=== PATIENT | female | born 1955 | race Caucasian/White ===

== ENCOUNTER 2017-10-19 20:47 | Inpatient (IN) | payer OTHER ==
[~2017-10-19] VITALS: Ht 165.1 cm; Wt 53.7 kg
[~2017-10-19 20:47] MED LIST: ONDA4TAB46 PO; RANI150T85 PO; SILV1CRE73 TOP; XLD/500 PO
[2017-10-19 23:39] VITALS: BP 105/63; PULSE 90; TEMP 37.2; O2SAT 90
[2017-10-19 23:43] VITALS: BP 105/63; PULSE 90; TEMP 37.2; O2SAT 90; BMI 20.2
[2017-10-20] MEDS ORDERED: RANITIDINE HCL 150 MG TAB PO PRN (00:15)
[2017-10-20] MEDS ORDERED: ONDANSETRON 4 MG TAB PO PRN (00:15)
[2017-10-20] MEDS ORDERED: ONDANSETRON INJ 2 MG/ML 2 ML VIAL IV PRN (00:15)
[2017-10-20] MEDS ORDERED: ALUMINUM/MAGNESIUM/SIMETH (MAALOX MAX) 30 ML UDC PO PRN (00:15)
[2017-10-20] MEDS ORDERED: ACETAMINOPHEN 325 MG TAB PO PRN (00:15)
[2017-10-20] MEDS ORDERED: PROC10TA PO (00:18)
[2017-10-20] MEDS ORDERED: OXYC-57 PO (00:18)
[2017-10-20] MEDS ORDERED: ALBUT/IPRATROP 3MG/0.5MG NEB 3 ML VIAL INH PRN (00:30)
[2017-10-20] MEDS ORDERED: POLYETHYLENE (MIRALAX) 17 GM PACK PO PRN (00:30)
[2017-10-20] MEDS ORDERED: NSS + 20MEQ KCL 1000ML 1,000 ML IV SCH (00:45)
[2017-10-20] MEDS: MoRPHine SULFATE 4 MG/ML 1 ML CARP\\VIAL IV PRN ×3 (01:02→17:58)
[2017-10-20 04:07] VITALS: BP 94/52; PULSE 72; TEMP 37.1; O2SAT 92
[2017-10-20 06:11] LABS: BASO % 0.2 %; BASO ABS # 0.01 K/uL (0-0.2); EOS % 4.4 %; EOS ABS # 0.24 K/uL (0-0.5); HEMATOCRIT 33.3 % (37-47); HEMOGLOBIN 11.2 g/dL (12.0-16.0); IG# 0.11 K/uL (0.00-0.02); LYMPH % 19.2 %; LYMPH ABS # 1.04 K/uL (1.2-3.4); MEAN CELL VOLUME 99.4 fL (80-100); MEAN CORPUSCULAR HEMOGLOBIN 33.4 pg (25-34); MEAN CORPUSCULAR HGB CONC 33.6 g/dl (32-36); MEAN PLATELET VOLUME 9.2 fL (7.4-10.4); MONO % 11.6 %; MONO ABS # 0.63 K/uL (0.11-0.59); NEUT % 62.6 %; NEUT ABS # 3.38 K/uL (1.4-6.5); PLATELET COUNT 219 K/uL (130-400); RED CELL DISTRIBUTION WIDTH SD 64.2 fL (36.4-46.3); WHITE BLOOD COUNT 5.41 K/uL (4.8-10.8)
[2017-10-20 06:41] LABS: CALCIUM 8.1 mg/dl (8.5-10.1); CREATININE 0.64 mg/dl (0.60-1.20); PHOSPHORUS 2.6 mg/dl (2.5-4.9); POTASSIUM 3.6 mmol/L (3.5-5.1)
[2017-10-20 06:59] VITALS: BMI 19.9
--- NOTE | 2017-10-20 07:09 | Medical Consult ---
Consultation Date of Consultation: Oct 20, 2017. Attending Physician: Asha Hui M.D. Reason for Consultation: bowel obstruction History of Present Illness pt adm with abd pain, distention over 1-2 weeks h/o rectal cancer dx'd 05/2017, undergoing neoadj chemo now radiation. pt is bloated w/ abd pain, No N/V Pt of GeTrepUper system, has been seen by Dr Tong surgeon in [place]. has had no surgery yet. She says she is passing gas and loose bms Social History Smoking Status: Former Smoker Allergies Coded Allergies: Iodinated Diagnostic Agents (Verified Allergy, Intermediate, HIVES, ) Current Inpatient Medications Current Inpatient Medications Medications (Trade) Dose Ordered Sig/Boo Route Start Time Stop Time Status Last Admin Dose Admin Acetaminophen (Tylenol Tab) 650 mg Q4H PRN PO 10/20/17 00:15 11/19/17 00:14 Al Hydrox/Mg Hydrox/Simethicone (Maalox Max Susp) 15 ml Q4H PRN PO 10/20/17 00:15 11/19/17 00:14 Polyethylene (Miralax Powder Packet) 17 gm DAILY PRN PO 10/20/17 00:30 11/19/17 00:29 Ondansetron HCl (Zofran Inj) 4 mg Q6H PRN IV 10/20/17 00:15 11/19/17 00:14 Ondansetron HCl (Zofran Tab) 4 mg Q4 PRN PO 10/20/17 00:15 11/19/17 00:14 Ranitidine HCl (zANTac TAB) 150 mg BID PRN PO 10/20/17 00:15 11/19/17 00:14 Silver Sulfadiazine (Silvadene 1% Crm 50GM Jar) 1 appln DAILY EXT 10/20/17 08:00 11/19/17 07:59 Potassium Chloride/Sodium Chloride 1,000 ml @ 100 mls/hr Q10H IV 10/20/17 00:45 11/19/17 00:14 10/20/17 01:01 100 MLS/HR Morphine Sulfate (MoRPHine SULFATE INJ) 3 mg Q3HWA PRN IV 10/20/17 00:15 11/03/17 00:14 10/20/17 01:02 3 MG Albuterol/ Ipratropium (Duoneb) 3 ml Q4R PRN INH 10/20/17 00:30 11/19/17 00:29 Review of Systems Constitutional: No fever Respiratory: No cough, No shortness of breath Cardiovascular: No chest pain Abdomen: + pain, + diarrhea, No vomiting Musculoskeletal: No muscle pain Integumentary: No rash Physical Exam Date Time Temp Pulse Resp B/P (MAP) Pulse Ox O2 Delivery O2 Flow Rate FiO2 10/20/17 04:07 37.1 72 18 94/52 (66) 92 Room Air 10/19/17 23:43 37.2 90 18 105/63 90 Room Air 10/19/17 23:39 37.2 90 18 105/63 (77) 90 Room Air General Appearance: no apparent distress Eyes: normal inspection Neck: supple Respiratory/Chest: no respiratory distress Cardiovascular: regular rate, rhythm Abdomen/GI: + distended (minimal tenderness, some bowel sounds) Extremities/Musculoskelatal: no pedal edema Neurologic/Psych: alert Skin: no rash Laboratory Results Last 24 Hours Test 10/20/17 05:37 White Blood Count 5.41 K/uL Red Blood Count 3.35 M/uL Hemoglobin 11.2 g/dL Hematocrit 33.3 % Mean Corpuscular Volume 99.4 fL Mean Corpuscular Hemoglobin 33.4 pg Mean Corpuscular Hemoglobin Concent 33.6 g/dl Platelet Count 219 K/uL Mean Platelet Volume 9.2 fL Neutrophils (%) (Auto) 62.6 % Lymphocytes (%) (Auto) 19.2 % Monocytes (%) (Auto) 11.6 % Eosinophils (%) (Auto) 4.4 % Basophils (%) (Auto) 0.2 % Neutrophils # (Auto) 3.38 K/uL Lymphocytes # (Auto) 1.04 K/uL Monocytes # (Auto) 0.63 K/uL Eosinophils # (Auto) 0.24 K/uL Basophils # (Auto) 0.01 K/uL RDW Standard Deviation 64.2 fL RDW Coefficient of Variation 18.0 % Immature Granulocyte % (Auto) 2.0 % Immature Granulocyte # (Auto) 0.11 K/uL Sodium Level 139 mmol/L Potassium Level 3.6 mmol/L Chloride Level 103 mmol/L Carbon Dioxide Level 28 mmol/L Anion Gap 9.0 mmol/L Blood Urea Nitrogen 15 mg/dl Creatinine 0.64 mg/dl Est Creatinine Clear Calc Drug Dose 78.4 ml/min Estimated GFR () 110.1 Estimated GFR (Non- 95.0 BUN/Creatinine Ratio 23.3 Random Glucose 83 mg/dl Calcium Level 8.1 mg/dl Phosphorus Level 2.6 mg/dl Magnesium Level 2.1 mg/dl Assessment & Plan 10/20/17- Pt transferred from [place]- had CT there- radiology trying to find it.\ seems to be developing obstructive sxs from tumor- may need diversion- depending on progress. Will ask radiology to obtain CT from [place]. Consider GI eval- stenting may be difficult with tumor near anal area. May need transfer to [place] if pt req surgery and she wants Dr Tong to perform. May need Tpn/ Picc 10/20/17- Addendum- after review of CT- pt has dilated small bowel with decompressed distal ileum- sbo- possibly adhesion (?had tubal). Colon is decompressed - unlikely tumor is causing this- could be ileus. Will place NG. She has not had N/V nonoperative treatment for now
[2017-10-20 07:10] VITALS: BP 99/58; PULSE 74; TEMP 36.9; O2SAT 91
--- NOTE | 2017-10-20 08:05 | HISTORY & PHYSICAL EXAMINATION ---
DATE OF ADMISSION: 10/19/2017 CHIEF COMPLAINT: abdominal pain. HISTORY OF PRESENT ILLNESS: 61F with recent diagnosis of rectal cancer on chemoradiation,hx of GERD, tobacco use presents with severe abdominal pain ongoing for last couple of weeks. Thought it was UTI and was getting antibiotics but her symptoms are not improving. No nausea or vomiting. But last couple of days not eating. Took laxatives and had a normal bowel movement today.Because of ongoing abdominal pain went to [place] ER today. Ct sacn was done which swoed dilated jejunum and possible Distal SBO or ileus and was transferred ere for further care. Denies any headaches or dizziness, No blurred vsion, no earaches, No runny nose, no sore throat, no difficulty swallowing. having low grade fevers on and off, No chest pain or sob.No cough. No blood in stools. Normal bladder movements. PMH as above Past surgical history: Colonoscopy with biopsy, ligation of oviducts, tonsillectomy. MEDICATIONS: The patient is on Cipro 500 mg p.o. b.i.d. for 10 days, Percocet 5/325 mg 1 tablet every 4-6 hours p.r.n., silver sulfadiazine apply to affected area as needed, Zofran 8 mg p.o. b.i.d. p.r.n., Xeloda 1300mg mg p.o. b.i.d.with radiation, compazine 10mg p.r.n., Pepcid 20 mg p.o. bid. FAMILY HISTORY: Significant for father . SOCIAL HISTORY: and lives with her . Smokes 1 pack a day for 49 years. No alcohol. No drugs REVIEW OF SYMPTOMS: As per HPI. Rest of the review of symptoms negative. PHYSICAL EXAMINATION: GENERAL: The patient is of moderate build, not in distress. VITAL SIGNS: Temperature 37.2, pulse 90, respiratory rate 18, blood pressure 105/63 oxygen 90% on room air. HEENT: No pallor, no icterus. NECK: No JVD. No neck masses. No carotid bruits. CARDIOVASCULAR: S1, S2 heard. Regular rate and rhythm. No murmur. No gallop. RESPIRATORY SYSTEM: Normal AP diameter. No accessory muscle use. No wheezing. No crackles. ABDOMEN: Soft. Bowel sounds sluggish, slightly distended. Diffuse tenderness. No guarding or rigidity. CENTRAL NERVOUS SYSTEM: Cranial nerves II through XII grossly intact. Nonfocal. EXTREMITIES: No edema, no erythema. LABORATORIES: outside labs potassium 3.1 . rest of labs ok. Ct scan shows 4.5cm dilated jejunum. possible distal SBO vs ileus ASSESSMENT AND PLAN: 1.SBO vs ileus on ct scan done at [facility] Will keep npo except meds IV fluids, iv pain meds and antiemetics prn follow kub in am surgery consult in am 2.rectal cancer on chemo radiation. takes Xeloda on days of radiation because of ongoing above symptoms will consult heme/onco. 3. Dvt px scds for now Disposition. monitor in medical floor code status Full only if chance of recover. MTDD
[2017-10-20] MEDS: SILVER SULFADIAZINE 1% CR 50 GM JAR EXT SCH (08:57)
[2017-10-20] MEDS: D5W AND 1/2NSS + 20MEQ KCL 1,000 ML IV SCH ×2 (08:58→17:01)
[2017-10-20 09:00] VITALS: BMI 19.9
--- NOTE | 2017-10-20 11:11 | DIAGNOSTIC IMAGING REPORT ---
KUB CLINICAL HISTORY: Small bowel obstruction. History of colon carcinoma COMPARISON STUDY: PET/CT scan performed July 2017 FINDINGS: Nasogastric tube is visualized with its tip in the stomach. There are dilated small bowel loops measuring up to 5.4 cm in diameter. There is a paucity of colonic gas. The findings are consistent with a small bowel obstruction. IMPRESSION: 1. Small bowel obstructive pattern 2. Nasogastric tube within the stomach Electronically signed by: hIsan Bustamante M.D. 10/20/2017 11:10 AM Dictated Date/Time: 10/20/2017 11:09 AM
[2017-10-20 11:26] VITALS: BP 98/60; PULSE 63; TEMP 36.9; O2SAT 90
[2017-10-20 14:59] VITALS: BP 104/63; PULSE 73; TEMP 39.9; O2SAT 91
--- NOTE | 2017-10-20 15:06 | Gastrointestinal Consultation ---
Gastrointestinal Consultation Date of Consultation: Oct 20, 2017 Attending Physician: Saulo Benoit Consulting Physician: Carly Resendez Reason for Consultation: Ileus vs mechanical obstruction History of Present Illness Patient is a 61 year old female seen for ileus vs mechanical obstruction. Diagnosed w invasive rectal adenocarcinoma via colonoscopy on 06/28/[address] Ramirez. Cancer extending about 5cm into rectum. She had been evaluated by Heme/Onc (Dr. Ely) and Colorectal Sx (Dr. Tong), no surgical plans yet, she started adjuvant chemoradiation (had 4 sessions), also currently taking Xeloda. She presented to [facility] yesterday w c/o abd pain, n/v, bloating x [address] abd/pelvis w/o contrast done showed jejunum dilation up to 4.2cm, no obvious mechanical obstruction or transition point noted. She was transferred to [facility] for further management. Surgery (Dr. Benoit) following. Labs showed no leukocytosis, H/H 11/33, Plt 219. BMP grossly normal except Ca 8.1. KUB again represent small bowel obstruction, NGT tip in stomach. She is passing flatus and also liquid stools up till this AM. She denies any rectal bleeding or dark tarry stools. NGT w intermittent suction w >100ml bilious gastric fluid output. She is still having bloating and abd discomfort. She is currently NPO except meds. She recently was started on Cipro for suspected UTI. Also been taking Percocet for rectal pain. Past Medical/Surgical History Past Medical History: See HPI above; emphysema, tobacco abuse, anxiety Past Surgical History: Tubal ligation, tonsillectomy Family History Not related to current admission Social History Smoking Status: Former Smoker Alcohol Use: none Drug Use: none Allergies Coded Allergies: Iodinated Diagnostic Agents (Verified Allergy, Intermediate, HIVES, ) Current Medications Home Meds and Scripts Medications Dose Route/Sig Max Daily Dose Days Date Category Percocet 5MG/325MG (Oxycodone/Acetaminophen) Tab 1 Tablet PO Q4H PRN 10/20/17 Rx Compazine (Prochlorperazine Maleate) 10 Mg Tab 10 Mg PO Q6H PRN 10/20/17 Rx Silvadene (Silver Sulfadiazine) 1 % Cre 1 Appln TOP DAILY 7 10/04/17 Reported Zofran (Ondansetron HCl) 4 Mg Tab 4 Mg PO Q4 PRN 09/27/17 Reported Xeloda (Capecitabine) 500 Mg Tab 1,300 Mg PO Q12H 09/20/17 Reported Zantac (Ranitidine HCl) 150 Mg Tab 1 Tab PO BID PRN 30 08/24/17 Reported Review of Systems Constitutional: No fever, No chills Respiratory: No cough, No shortness of breath Cardiac: No chest pain Abdomen: + see HPI, + pain, + nausea, + vomiting, + diarrhea Skin: No rash, No itch Physical Exam Date Time Temp Pulse Resp B/P (MAP) Pulse Ox O2 Delivery O2 Flow Rate FiO2 10/20/17 11:26 36.9 63 16 98/60 (73) 90 10/20/17 10:42 Room Air 10/20/17 07:10 36.9 74 18 99/58 (72) 91 10/20/17 04:07 37.1 72 18 94/52 (66) 92 Room Air 10/19/17 23:43 37.2 90 18 105/63 90 Room Air 10/19/17 23:39 37.2 90 18 105/63 (77) 90 Room Air General Appearance: + mild distress (c/o abd discomfort and bloating ) Eyes: normal inspection, PERRL, EOMI Neck: supple, no JVD, trachea midline Respiratory/Chest: normal breath sounds, no respiratory distress, no accessory muscle use Cardiovascular: regular rate, rhythm, no gallop, no murmur Abdomen: + abnormal bowel sounds (tympanic; high pitched), + distended, + tenderness Extremities: normal inspection, no pedal edema, no calf tenderness Neurologic/Psych: alert, normal mood/affect, oriented x 3 Skin: normal color, no jaundice, no rash Laboratory Results Last 24 Hours Test 10/20/17 05:37 White Blood Count 5.41 K/uL Red Blood Count 3.35 M/uL Hemoglobin 11.2 g/dL Hematocrit 33.3 % Mean Corpuscular Volume 99.4 fL Mean Corpuscular Hemoglobin 33.4 pg Mean Corpuscular Hemoglobin Concent 33.6 g/dl Platelet Count 219 K/uL Mean Platelet Volume 9.2 fL Neutrophils (%) (Auto) 62.6 % Lymphocytes (%) (Auto) 19.2 % Monocytes (%) (Auto) 11.6 % Eosinophils (%) (Auto) 4.4 % Basophils (%) (Auto) 0.2 % Neutrophils # (Auto) 3.38 K/uL Lymphocytes # (Auto) 1.04 K/uL Monocytes # (Auto) 0.63 K/uL Eosinophils # (Auto) 0.24 K/uL Basophils # (Auto) 0.01 K/uL RDW Standard Deviation 64.2 fL RDW Coefficient of Variation 18.0 % Immature Granulocyte % (Auto) 2.0 % Immature Granulocyte # (Auto) 0.11 K/uL Sodium Level 139 mmol/L Potassium Level 3.6 mmol/L Chloride Level 103 mmol/L Carbon Dioxide Level 28 mmol/L Anion Gap 9.0 mmol/L Blood Urea Nitrogen 15 mg/dl Creatinine 0.64 mg/dl Est Creatinine Clear Calc Drug Dose 78.4 ml/min Estimated GFR () 110.1 Estimated GFR (Non- 95.0 BUN/Creatinine Ratio 23.3 Random Glucose 83 mg/dl Calcium Level 8.1 mg/dl Phosphorus Level 2.6 mg/dl Magnesium Level 2.1 mg/dl Impression Patient is a 61 year old female w invasive rectal adenocarcinoma, currently presented with small bowel obstruction vs ileus; no obvious mechanical obstruction/mass or transition point seen in CT scan (done at [place]). She is passing flatus and liquid stools thus likely ileus rather than complete SBO. NGT in place. Possible etiologies of her ileus: hx of tubal ligation and no other prior abd surgery thus making adhesions less likely, Xeloda w low risk of causing intestinal obstruction, she had been taking Percocet for rectal pain. Plan - Keep NPO - NGT to low intermittent suction - KUB daily till ileus resolves - Avoid narcotics if possible - Check Cdiff to r/o infectious process. - Unfortunately Relistor may not be very useful in small bowel obstruction but we will try 2 doses of this; and there's little we can offer from GI standpoint otherwise to help resolve the obstruction. Surgery already following. Would consider possible transfer to [facility] where there's colorectal surgery support (she had been seen by Dr. Jasiel Tong) should SBO not resolve w conservative management and if surgery is indicated I saw and evaluated the patient with Ms. Palmer. She was referred to [facility] after presenting to the emergency room at [facility] last evening with worsening symptoms of nausea and abdominal bloating. Imaging seems to indicate dilation of the small bowel and decompression of the colon. Her history is notable for rectal cancer which was identified by my partner . She is presently receiving neoadjuvant chemoradiation therapy in preparation for surgery with at [facility]. The patient does note that she is a large amount of pain medication at home approximately every 4-6 hours. Physical examination Mild abdominal distention, mild tenderness noted, no rebound or peritoneal signs Impression: Patient with signs and symptoms most consistent with a narcotic ileus. Given the diarrhea and her ongoing chemotherapy it may be reasonable to obtain a C. difficile PCR to ensure she does not have a C. difficile infection. We would also suggest a trial of Relistor to see if this helps the patient's symptoms improve over the next few days. I would agree with continuing the NG tube to low intermittent suction and daily abdominal films. The patient may also benefit from continued IV hydration as you are doing. I would also suggest avoidance of narcotics if possible as these are likely contributing to her present symptoms.
[2017-10-20] MEDS: METHYLNALTREXONE BROMIDE INJ 12 MG/0.6 ML SYR SQ SCH (17:00)
--- NOTE | 2017-10-20 17:06 | Medical Consult ---
Consultation Date of Consultation: Oct 20, 2017. Attending Physician: Asha Hui M.D. Reason for Consultation: Abdominal pain/bloating in setting of recently completed neoadjuvant chemoRT for rectal cancer History of Present Illness Ms. Garcia is a 61 yo F known to the consulting Oncology service for rectal cancer diagnosed in May 2017, clinical T3c N1 M0. She was on neoadjuvant chemoRT with Xeloda starting in Aug 2017. Patient called into Med Onc office last week stating she would not finish out chemoRT, about 5 days worth due to side effects. She developed radiation proctitis toward the end of her treatment and also the perineal skin had significant breakdown. She was using Silvadene and lanolin cream to the affected area. Rad Onc Rx oxycodone/APAP 5/325 mg PRN for pain. For the 2 weeks leading up to admission, patient was having issues with nausea, bloating, bowel frequency, perineal pain with urination due to skin breakdown. With stopping the chemoRT last week, the perineal are was able to heal. She decided yesterday to seek medical attention for her GI symptoms at [facility]. She had a CT scan that showed some small bowel dilatation, concerning for SBO. She was transferred to [facility] for further management. She has been evaluated by general surgery- CT was reviewed, with clinical opinion more likely with ileus vs SBO. She has NG tube and is NPO. She has been recommended to be transferred to [facility] if she does not improve with conservative treatment as that is where her CRC surgeon is. She was also evaluated by GI. Relistor has been given x 2. Additional history obtained from the patient at bedside. She states her abdominal bloating remains unchanged. She did not have BM for a few days prior to admission, so she reports taking a laxative and then developing mostly liquid bowel, had movement last night and this morning. She denies nausea or abd pain. She has not had GI bleeding. She reports anal/perineal area less raw. She denies fever, respiratory complaints, edema. Social History Smoking Status: Former Smoker Drug Use: none Allergies Coded Allergies: Iodinated Diagnostic Agents (Verified Allergy, Intermediate, HIVES, ) Current Inpatient Medications Current Inpatient Medications Medications (Trade) Dose Ordered Sig/Boo Route Start Time Stop Time Status Last Admin Dose Admin Acetaminophen (Tylenol Tab) 650 mg Q4H PRN PO 10/20/17 00:15 11/19/17 00:14 Al Hydrox/Mg Hydrox/Simethicone (Maalox Max Susp) 15 ml Q4H PRN PO 10/20/17 00:15 11/19/17 00:14 Polyethylene (Miralax Powder Packet) 17 gm DAILY PRN PO 10/20/17 00:30 11/19/17 00:29 Ondansetron HCl (Zofran Inj) 4 mg Q6H PRN IV 10/20/17 00:15 11/19/17 00:14 Ondansetron HCl (Zofran Tab) 4 mg Q4 PRN PO 10/20/17 00:15 11/19/17 00:14 Ranitidine HCl (zANTac TAB) 150 mg BID PRN PO 10/20/17 00:15 11/19/17 00:14 Silver Sulfadiazine (Silvadene 1% Crm 50GM Jar) 1 appln DAILY EXT 10/20/17 08:00 11/19/17 07:59 10/20/17 08:57 1 APPLN Morphine Sulfate (MoRPHine SULFATE INJ) 3 mg Q3HWA PRN IV 10/20/17 00:15 11/03/17 00:14 10/20/17 08:58 3 MG Albuterol/ Ipratropium (Duoneb) 3 ml Q4R PRN INH 10/20/17 00:30 11/19/17 00:29 Potassium Chloride/Dextrose/ Sod Cl 1,000 ml @ 125 mls/hr Q8H IV 10/20/17 08:30 11/19/17 08:29 10/20/17 08:58 125 MLS/HR Methylnaltrexone [place] (Relistor Inj) 12 mg Q2D@0900 SQ 10/20/17 15:45 10/22/17 09:01 Review of Systems Constitutional: No fever, No weakness Respiratory: No cough, No shortness of breath Cardiovascular: No chest pain, No edema Abdomen: + diarrhea, + problem reported (see HPI), No pain, No nausea, No GI bleeding Integumentary: No rash Physical Exam Date Time Temp Pulse Resp B/P (MAP) Pulse Ox O2 Delivery O2 Flow Rate FiO2 10/20/17 14:59 39.9 73 20 104/63 (77) 91 Room Air 10/20/17 11:26 36.9 63 16 98/60 (73) 90 10/20/17 10:42 Room Air 10/20/17 07:10 36.9 74 18 99/58 (72) 91 10/20/17 04:07 37.1 72 18 94/52 (66) 92 Room Air 10/19/17 23:43 37.2 90 18 105/63 90 Room Air 10/19/17 23:39 37.2 90 18 105/63 (77) 90 Room Air General Appearance: no apparent distress, + thin ENT: hearing grossly normal, + pertinent finding (NG tube in place) Respiratory/Chest: lungs clear, normal breath sounds Cardiovascular: regular rate, rhythm, no edema Abdomen/GI: no organomegaly, + abnormal bowel sounds, + distended Extremities/Musculoskelatal: no calf tenderness Neurologic/Psych: alert, oriented x 3 Skin: no rash Laboratory Results Last 24 Hours Test 10/20/17 05:37 White Blood Count 5.41 K/uL Red Blood Count 3.35 M/uL Hemoglobin 11.2 g/dL Hematocrit 33.3 % Mean Corpuscular Volume 99.4 fL Mean Corpuscular Hemoglobin 33.4 pg Mean Corpuscular Hemoglobin Concent 33.6 g/dl Platelet Count 219 K/uL Mean Platelet Volume 9.2 fL Neutrophils (%) (Auto) 62.6 % Lymphocytes (%) (Auto) 19.2 % Monocytes (%) (Auto) 11.6 % Eosinophils (%) (Auto) 4.4 % Basophils (%) (Auto) 0.2 % Neutrophils # (Auto) 3.38 K/uL Lymphocytes # (Auto) 1.04 K/uL Monocytes # (Auto) 0.63 K/uL Eosinophils # (Auto) 0.24 K/uL Basophils # (Auto) 0.01 K/uL RDW Standard Deviation 64.2 fL RDW Coefficient of Variation 18.0 % Immature Granulocyte % (Auto) 2.0 % Immature Granulocyte # (Auto) 0.11 K/uL Sodium Level 139 mmol/L Potassium Level 3.6 mmol/L Chloride Level 103 mmol/L Carbon Dioxide Level 28 mmol/L Anion Gap 9.0 mmol/L Blood Urea Nitrogen 15 mg/dl Creatinine 0.64 mg/dl Est Creatinine Clear Calc Drug Dose 78.4 ml/min Estimated GFR () 110.1 Estimated GFR (Non- 95.0 BUN/Creatinine Ratio 23.3 Random Glucose 83 mg/dl Calcium Level 8.1 mg/dl Phosphorus Level 2.6 mg/dl Magnesium Level 2.1 mg/dl Assessment & Plan 1. rectal cancer diagnosed in May 2017, clinical T3c N1 M0 2. Probable ileus vs SBO, not from direct tumor effect * Patient has been evaluated by gen surg and GI * Patient is on conservative management with NG tube, NPO * Has been advised by GS and GI that if fails to improve with conservative treatment, to be transferred to [facility] where her CRC surgeon could perform definitive surgery * Patient should use morphine PRN sparingly * Patient has completed neoadj treatment at this point, her treatment now for rectal cancer is surgery based (may need adjuvant systemic treatment) * Patient can follow up with Med Onc on hospital discharge Thanks for the consult. Dr. Gallardo is rounding medical oncologist I performed history and physical examination of the patient. ~I have discussed the patient's case, impression and plan with Sulema Dunlap PA-C. Her note reflects my findings and plan. In summary, she is a 61-year-old female, a case of rectal adenocarcinoma diagnosed in May 2017, preoperative staging T3c N1 M0, she follows up with my partner Dr. Ely, she completed combined chemotherapy exonerated radiation treatment recently few weeks back, she will not complete the treatment quite well, 4 weeks of planned 5 weeks of treatment, she had a radiation induced proctitis, now admitted for possible small bowel obstruction or ileus, managed conservatively, had some bowel movement in the morning, reviewed her blood workup done today, overall stable blood workup findings noted, mild anemia with hemoglobin level around 11.2, no neutropenia, stable and normal kidney function test noted. Will continue with the current medical management but if she needs a surgical intervention, will consider for transfer to [facility]. No further medical oncology recommendation at this time. We should see her back in the clinic after definitive surgical intervention in her case to consider for any additional systemic chemotherapy. Kasi Gallardo MD Hem/Onc.
[2017-10-20 19:00] VITALS: BP_SYST 104; BP_SYST 95; BP_DIAS 53; BP_DIAS 63; PULSE 73; TEMP 36.8; TEMP 39.9; O2SAT 85; O2SAT 91
--- NOTE | 2017-10-20 23:09 | Progress Note ---
Internal Med Progress Note Date of Service: Oct 20, 2017. Provider Documentation: SUBJECTIVE: Denies of any nausea or abdominal pain NG tube draining yellow-green drainage No fever or chills OBJECTIVE: Vital Signs-as noted below Exam: General-no apparent distress Eyes-sclera nonicteric, pupils reactive light ENT-dry oral mucosa Neck-no JVD no carotid bruit, no thyromegaly, trachea midline Lungs-clear to auscultate, no wheeze or rales Heart-regular S1-S2, Abdomen-soft, bowel sounds diminished Extremities-no lower extremity edema, no calf tenderness Neuro-alert awake oriented 3 no focal neurological deficits Lab data as noted below. ASSESSMENT & PLAN: ABDOMINAL PAIN/DISTAL SMALL BOWEL OBSTRUCTION -Sent from [facility], CT abdomen pelvis without contrast: 10/19/2017, at [facility]: -Diffuse dilatation of the jejunum is seen measuring up to 4.2 cm in transluminal in the diameter with fluid-filled bowel loops. -Differential diagnostic diagnosis considerations include intermittent digit distal small bowel obstruction versus ileus. -No definitive evidence of transition point or evidence of mechanical obstruction on Admission 10/20/17 KUB shows Impression 1. Small bowel obstruction pattern 2. Nasogastric tube within the stomach -Patient is started with NG suction -Appreciate input from surgery -N.p.o., IV fluid -Repeat KUB in a.m. HISTORY OF RECTAL CANCER ON CHEMO AND RADIATION TREATMENT rectal cancer diagnosed in May 2017, clinical stage T3c N1 M0.Stage IIA -III 06/07/2017: Patient was seen by Beth Swenson physician recreation assistant with complaint of rectal bleed Referral was made for colonoscopy 06/28/2017: Colonoscopy revealed firm nodular - infiltrative polypoid ulcerated rectal mass starting from anal verge and extending up to 5 cm in length Biopsy/pathology shows: Invasive adenocarcinoma, moderately differentiated Patient was seen at [facility] colorectal surgery Dr.Kevin Freeman Tong - will need to complete neoadjuvant chemoradiation therapy -Post chemoradiation patient will need laparoscopic or possible open abdominal perineal resection Hematology oncology consulted, appreciate input Patient been on Xeloda on days of radiation Patient could not complete chemo treatment last week due to side effect Also has developed radiation proctitis with significant perineal skin breakdown In any case if patient fails conservative approach, needs exploratory laparotomy for small bowel obstruction Patient should be transferred to [facility] where she is being followed by colorectal surgery Dr. tong Status: Full code DVT PROPHYLAXIS SCD and teds Pharmacological anticoagulation avoided as patient may need surgical procedure for bowel obstruction DISPOSITION Expected to be discharged home when medically stable Vital Signs: Date Time Temp Pulse Resp B/P (MAP) Pulse Ox O2 Delivery O2 Flow Rate FiO2 10/21/17 11:55 36.7 69 20 94/56 (69) 85 Room Air 10/21/17 11:11 Room Air 10/21/17 07:10 36.8 73 18 95/57 (70) 87 Room Air 10/21/17 04:04 36.7 74 18 101/60 (74) 85 Room Air 10/21/17 01:18 Room Air 10/20/17 23:55 37.1 70 18 92/52 (65) 88 Room Air 10/20/17 19:00 36.8 73 20 95/53 (67) 85 Room Air 10/20/17 16:00 Room Air 10/20/17 14:59 39.9 73 20 104/63 (77) 91 Room Air Lab Results: Results Past 24 Hours Test 10/21/17 00:03 10/21/17 06:01 Range/Units Sodium Level 139 136-145 mmol/L Potassium Level 3.9 3.5-5.1 mmol/L Chloride Level 105 98-107 mmol/L Carbon Dioxide Level 29 21-32 mmol/L Anion Gap 5.0 3-11 mmol/L Blood Urea Nitrogen 9 7-18 mg/dl Creatinine 0.71 0.60-1.20 mg/dl Est Creatinine Clear Calc Drug Dose 70.4 ml/min Estimated GFR () 105.1 Estimated GFR (Non- 90.7 BUN/Creatinine Ratio 12.2 10-20 Random Glucose 143 70-99 mg/dl Calcium Level 7.8 8.5-10.1 mg/dl Magnesium Level 2.0 1.8-2.4 mg/dl White Blood Count 7.57 4.8-10.8 K/uL Red Blood Count 3.26 4.2-5.4 M/uL Hemoglobin 10.9 12.0-16.0 g/dL Hematocrit 32.4 37-47 % Mean Corpuscular Volume 99.4 80-100 fL Mean Corpuscular Hemoglobin 33.4 25-34 pg Mean Corpuscular Hemoglobin Concent 33.6 32-36 g/dl Platelet Count 191 130-400 K/uL Mean Platelet Volume 8.8 7.4-10.4 fL Neutrophils (%) (Auto) 74.9 % Lymphocytes (%) (Auto) 12.2 % Monocytes (%) (Auto) 9.2 % Eosinophils (%) (Auto) 2.5 % Basophils (%) (Auto) 0.3 % Neutrophils # (Auto) 5.67 1.4-6.5 K/uL Lymphocytes # (Auto) 0.92 1.2-3.4 K/uL Monocytes # (Auto) 0.70 0.11-0.59 K/uL Eosinophils # (Auto) 0.19 0-0.5 K/uL Basophils # (Auto) 0.02 0-0.2 K/uL RDW Standard Deviation 63.3 36.4-46.3 fL RDW Coefficient of Variation 18.0 11.5-14.5 % Immature Granulocyte % (Auto) 0.9 % Immature Granulocyte # (Auto) 0.07 0.00-0.02 K/uL
[2017-10-20 23:55] VITALS: BP 92/52; PULSE 70; TEMP 37.1; O2SAT 88
[2017-10-21] MEDS: D5W AND 1/2NSS + 20MEQ KCL 1,000 ML IV SCH ×3 (01:03→17:21)
[2017-10-21] MEDS: MoRPHine SULFATE 4 MG/ML 1 ML CARP\\VIAL IV PRN ×2 (03:51→08:22)
[2017-10-21 04:04] VITALS: BP 101/60; PULSE 74; TEMP 36.7; O2SAT 85
[2017-10-21 06:17] LABS: BASO % 0.3 %; BASO ABS # 0.02 K/uL (0-0.2); EOS % 2.5 %; EOS ABS # 0.19 K/uL (0-0.5); HEMATOCRIT 32.4 % (37-47); HEMOGLOBIN 10.9 g/dL (12.0-16.0); IG# 0.07 K/uL (0.00-0.02); LYMPH % 12.2 %; LYMPH ABS # 0.92 K/uL (1.2-3.4); MEAN CELL VOLUME 99.4 fL (80-100); MEAN CORPUSCULAR HEMOGLOBIN 33.4 pg (25-34); MEAN CORPUSCULAR HGB CONC 33.6 g/dl (32-36); MEAN PLATELET VOLUME 8.8 fL (7.4-10.4); MONO % 9.2 %; NEUT % 74.9 %; NEUT ABS # 5.67 K/uL (1.4-6.5); PLATELET COUNT 191 K/uL (130-400); RED CELL DISTRIBUTION WIDTH SD 63.3 fL (36.4-46.3); WHITE BLOOD COUNT 7.57 K/uL (4.8-10.8)
[2017-10-21 06:21] VITALS: BMI 20.2
[2017-10-21 06:56] LABS: CALCIUM 7.8 mg/dl (8.5-10.1); CREATININE 0.71 mg/dl (0.60-1.20); POTASSIUM 3.9 mmol/L (3.5-5.1)
[2017-10-21 07:10] VITALS: BP 95/57; PULSE 73; TEMP 36.8; O2SAT 87
--- NOTE | 2017-10-21 07:11 | Surgery Progress Note ---
Surgery Progress Note Date of Service Oct 21, 2017. Subjective pt awake, alert, min abd pain says some flatus, loose bm yesterday NG- clear bilious output- 500+ last shift Objective Vital Signs: Date Time Temp Pulse Resp B/P (MAP) Pulse Ox O2 Delivery O2 Flow Rate FiO2 10/21/17 04:04 36.7 74 18 101/60 (74) 85 Room Air 10/21/17 01:18 Room Air 10/20/17 23:55 37.1 70 18 92/52 (65) 88 Room Air 10/20/17 19:00 36.8 73 20 95/53 (67) 85 Room Air 10/20/17 16:00 Room Air 10/20/17 14:59 39.9 73 20 104/63 (77) 91 Room Air 10/20/17 11:26 36.9 63 16 98/60 (73) 90 10/20/17 10:42 Room Air 10/20/17 07:10 36.9 74 18 99/58 (72) 91 General Appearance: no apparent distress Respiratory/Chest: no respiratory distress Abdomen: + pertinent finding (still some distention, decreased bowel sounds) Laboratory Results: Results Past 24 Hours Test 10/21/17 00:03 10/21/17 06:01 Range/Units Sodium Level 139 136-145 mmol/L Potassium Level 3.9 3.5-5.1 mmol/L Chloride Level 105 98-107 mmol/L Carbon Dioxide Level 29 21-32 mmol/L Anion Gap 5.0 3-11 mmol/L Blood Urea Nitrogen 9 7-18 mg/dl Creatinine 0.71 0.60-1.20 mg/dl Est Creatinine Clear Calc Drug Dose 70.4 ml/min Estimated GFR () 105.1 Estimated GFR (Non- 90.7 BUN/Creatinine Ratio 12.2 10-20 Random Glucose 143 70-99 mg/dl Calcium Level 7.8 8.5-10.1 mg/dl Magnesium Level 2.0 1.8-2.4 mg/dl White Blood Count 7.57 4.8-10.8 K/uL Red Blood Count 3.26 4.2-5.4 M/uL Hemoglobin 10.9 12.0-16.0 g/dL Hematocrit 32.4 37-47 % Mean Corpuscular Volume 99.4 80-100 fL Mean Corpuscular Hemoglobin 33.4 25-34 pg Mean Corpuscular Hemoglobin Concent 33.6 32-36 g/dl Platelet Count 191 130-400 K/uL Mean Platelet Volume 8.8 7.4-10.4 fL Neutrophils (%) (Auto) 74.9 % Lymphocytes (%) (Auto) 12.2 % Monocytes (%) (Auto) 9.2 % Eosinophils (%) (Auto) 2.5 % Basophils (%) (Auto) 0.3 % Neutrophils # (Auto) 5.67 1.4-6.5 K/uL Lymphocytes # (Auto) 0.92 1.2-3.4 K/uL Monocytes # (Auto) 0.70 0.11-0.59 K/uL Eosinophils # (Auto) 0.19 0-0.5 K/uL Basophils # (Auto) 0.02 0-0.2 K/uL RDW Standard Deviation 63.3 36.4-46.3 fL RDW Coefficient of Variation 18.0 11.5-14.5 % Immature Granulocyte % (Auto) 0.9 % Immature Granulocyte # (Auto) 0.07 0.00-0.02 K/uL Assessment & Plan 10/21/17- abd distention and CT findings - sbo- ileus vs mechanical recent chemo/ radiation- doubt findings related to tumor- colon decompressed. May consider Re CT w/ contrast via NG- GI team seeing pt. Overall she is stable addendum- CT w/ contrast- report pending- all contrast into small bowel none in stomach- no N/V- NG clamped since this am. contrast is progressing through dilated sb. will d/c NG, check xray in am to assess transit of contrast. possibly try diet tomorrow.
--- NOTE | 2017-10-21 08:13 | DIAGNOSTIC IMAGING REPORT ---
KUB CLINICAL HISTORY: Reevaluate ileus. COMPARISON STUDY: KUB October 20, 2017. FINDINGS: Tip of nasogastric tube projects over the pylorus. Moderate small bowel gaseous distention has moderately improved. There is scattered colonic and rectal gas. IMPRESSION: 1. Moderate small bowel gaseous distention, moderately improved since prior exam. The findings may reflect a small bowel obstruction or ileus. 2. Tip of nasogastric tube projects over the pylorus. Electronically signed by: Marcelino Pickering M.D. 10/21/2017 8:12 AM Dictated Date/Time: 10/21/2017 8:09 AM
[2017-10-21] MEDS: SILVER SULFADIAZINE 1% CR 50 GM JAR EXT SCH (08:14)
--- NOTE | 2017-10-21 11:54 | Gastroenterology Progress Note ---
Progress Note Date of Service: Oct 21, 2017 Subjective Pt evaluation today including: conversation w/ patient, physical exam, chart review, lab review, review of inpatient medication list Pt feels still having some abd bloating and discomfort. NGT outpt 150mL. She is passing still some stools and flatus. KUB showed moderate improvement of small bowel distension. Her exam revealed soft abd w good bowel sounds on all 4 quadrants. Review of Systems Constitutional: No fever, No chills Respiratory: No cough, No shortness of breath Cardiac: No chest pain Abdomen: + pain, No nausea, No vomiting Medications Current Inpatient Medications Medications (Trade) Dose Ordered Sig/Boo Route Start Time Stop Time Status Last Admin Dose Admin Acetaminophen (Tylenol Tab) 650 mg Q4H PRN PO 10/20/17 00:15 11/19/17 00:14 Al Hydrox/Mg Hydrox/Simethicone (Maalox Max Susp) 15 ml Q4H PRN PO 10/20/17 00:15 11/19/17 00:14 Polyethylene (Miralax Powder Packet) 17 gm DAILY PRN PO 10/20/17 00:30 11/19/17 00:29 Ondansetron HCl (Zofran Inj) 4 mg Q6H PRN IV 10/20/17 00:15 11/19/17 00:14 10/20/17 17:58 4 MG Ondansetron HCl (Zofran Tab) 4 mg Q4 PRN PO 10/20/17 00:15 11/19/17 00:14 Ranitidine HCl (zANTac TAB) 150 mg BID PRN PO 10/20/17 00:15 11/19/17 00:14 Silver Sulfadiazine (Silvadene 1% Crm 50GM Jar) 1 appln DAILY EXT 10/20/17 08:00 11/19/17 07:59 10/21/17 08:14 1 APPLN Morphine Sulfate (MoRPHine SULFATE INJ) 3 mg Q3HWA PRN IV 10/20/17 00:15 11/03/17 00:14 10/21/17 08:22 3 MG Albuterol/ Ipratropium (Duoneb) 3 ml Q4R PRN INH 10/20/17 00:30 11/19/17 00:29 Potassium Chloride/Dextrose/ Sod Cl 1,000 ml @ 125 mls/hr Q8H IV 10/20/17 08:30 11/19/17 08:29 10/21/17 08:15 125 MLS/HR Methylnaltrexone [employer] (Relistor Inj) 12 mg Q2D@0900 SQ 10/20/17 15:45 10/22/17 09:01 10/20/17 17:00 12 MG Objective Vital Signs Date Time Temp Pulse Resp B/P (MAP) Pulse Ox O2 Delivery O2 Flow Rate FiO2 10/21/17 11:11 Room Air 10/21/17 07:10 36.8 73 18 95/57 (70) 87 Room Air 10/21/17 04:04 36.7 74 18 101/60 (74) 85 Room Air 10/21/17 01:18 Room Air 10/20/17 23:55 37.1 70 18 92/52 (65) 88 Room Air 10/20/17 19:00 36.8 73 20 95/53 (67) 85 Room Air 10/20/17 16:00 Room Air 10/20/17 14:59 39.9 73 20 104/63 (77) 91 Room Air Physical Exam General Appearance: WD/WN, no apparent distress Eyes: normal inspection, PERRL, EOMI Neck: supple, no JVD, trachea midline Respiratory/Chest: normal breath sounds, no respiratory distress, no accessory muscle use Cardiovascular: regular rate, rhythm, no gallop, no murmur Abdomen: normal bowel sounds, non tender, soft Extremities: normal inspection, no pedal edema, no calf tenderness Neurologic/Psych: alert, normal mood/affect, oriented x 3 Skin: normal color, no jaundice, no rash Laboratory Results Last 24 Hours Test 10/21/17 00:03 10/21/17 06:01 Sodium Level 139 mmol/L Potassium Level 3.9 mmol/L Chloride Level 105 mmol/L Carbon Dioxide Level 29 mmol/L Anion Gap 5.0 mmol/L Blood Urea Nitrogen 9 mg/dl Creatinine 0.71 mg/dl Est Creatinine Clear Calc Drug Dose 70.4 ml/min Estimated GFR () 105.1 Estimated GFR (Non- 90.7 BUN/Creatinine Ratio 12.2 Random Glucose 143 mg/dl Calcium Level 7.8 mg/dl Magnesium Level 2.0 mg/dl White Blood Count 7.57 K/uL Red Blood Count 3.26 M/uL Hemoglobin 10.9 g/dL Hematocrit 32.4 % Mean Corpuscular Volume 99.4 fL Mean Corpuscular Hemoglobin 33.4 pg Mean Corpuscular Hemoglobin Concent 33.6 g/dl Platelet Count 191 K/uL Mean Platelet Volume 8.8 fL Neutrophils (%) (Auto) 74.9 % Lymphocytes (%) (Auto) 12.2 % Monocytes (%) (Auto) 9.2 % Eosinophils (%) (Auto) 2.5 % Basophils (%) (Auto) 0.3 % Neutrophils # (Auto) 5.67 K/uL Lymphocytes # (Auto) 0.92 K/uL Monocytes # (Auto) 0.70 K/uL Eosinophils # (Auto) 0.19 K/uL Basophils # (Auto) 0.02 K/uL RDW Standard Deviation 63.3 fL RDW Coefficient of Variation 18.0 % Immature Granulocyte % (Auto) 0.9 % Immature Granulocyte # (Auto) 0.07 K/uL Assessment and Plan Patient is a 61 year old female w invasive rectal adenocarcinoma, currently presented with small bowel obstruction vs ileus; no obvious mechanical obstruction/mass or transition point seen in CT scan (done at [place]). She is passing flatus and liquid stools thus likely ileus rather than complete SBO. NGT in place. Possible etiologies of her ileus: hx of tubal ligation and no other prior abd surgery thus making adhesions less likely, Xeloda w low risk of causing intestinal obstruction, she had been taking Percocet for rectal pain. Today exam showed soft abd, BS present x 4, KUB w moderate improvement of small bowel distension. Plan - Keep NPO - May try clamping NGT and DC by end of day if she tolerated clamping well. - KUB daily till ileus resolves - Avoid narcotics if possible - Check Cdiff to r/o infectious process. - Unfortunately Relistor may not be very useful in small bowel obstruction but we will try 2 doses of this; and there's little we can offer from GI standpoint otherwise to help resolve the obstruction. Surgery already following. Would consider possible transfer to [facility] where there's colorectal surgery support (she had been seen by Dr. Jasiel Tong) should SBO not resolve w conservative management and if surgery is indicated - We will watch peripherally, call again if new questions/concerns arise. I saw and evaluated the patient with Ms. Palmer. She appears to be slowly improving with use of Relistor from last evening. Based on the presentation we suspect that she has an narcotic induced ileus. Recommendations Given additional dose of Relistor tomorrow Try to avoid narcotics Bowel regimen as outpatient should include MiraLAX 17 g 1-2 times daily Please call with any questions or concerns GI to sign off for the present time
[2017-10-21 11:55] VITALS: BP 94/56; PULSE 69; TEMP 36.7; O2SAT 85
[2017-10-21 15:02] VITALS: BP 90/55; PULSE 67; TEMP 36.7; O2SAT 92
--- NOTE | 2017-10-21 15:24 | DIAGNOSTIC IMAGING REPORT ---
ABD/PELVIS ORAL CONT ONLY CLINICAL HISTORY: 61 years-old Female presenting with small bowel obstruction, history of rectal cancer. TECHNIQUE: Multidetector CT of the abdomen and pelvis was performed after the administration of oral contrast only. IV contrast: None. A dose lowering technique was used consistent with the principles of ALARA (as low as reasonably achievable). COMPARISON: PET/CT from 08/23/2017. CT DOSE (mGy.cm): The estimated cumulative dose is 299.41 mGy.cm. FINDINGS: Transfer Coordinator topogram: Nasogastric tube terminates in the gastric antrum. Gaseous distention of bowel. Hyperinflation of the lungs. Lung bases: Moderate emphysema. Subpleural solid polygonal 7 mm nodule in the lateral basal right lower lobe unchanged (series 3 image 3). Scarring or atelectasis noted in the right middle lobe and lingula. Normal heart size. No pericardial or pleural effusion. Liver: Normal morphology. Normal density. Well-defined subcentimeter hypodensity at the hepatic dome indeterminate but likely hepatic cyst or hamartoma. Periportal edema may be present. Biliary: No gross biliary ductal dilatation allowing for noncontrast technique. Gallbladder decompressed. Pancreas: Normal noncontrast appearance. Spleen: Normal noncontrast appearance. Adrenal glands: Normal noncontrast appearance. Kidneys and ureters: Normal noncontrast appearance. No nephrolithiasis. No hydronephrosis. Mild urothelial thickening may be present. Ureters suboptimally evaluated. Bladder: Circumferential bladder wall thickening. Pelvic organs: Normal noncontrast appearance. Bowel: Diverticulosis of the sigmoid colon. The appendix is not well evaluated. Dilated small bowel, which measures up to 4 cm in diameter. Oral contrast has transited to the mid small bowel. There is a smooth transition upstream to less dilated this to July. There is also a relatively smooth transition downstream to less dilated bowel in the mid anterior abdomen. No focal transition point is present though adhesions are not excluded as a cause for a partial obstruction. Mild small bowel wall thickening. No pneumatosis. Nasogastric tube terminates well within the gastric antrum (series 3 image 113). Peritoneal cavity: Small amount of predominantly pelvic ascites. No free intraperitoneal gas. Mild diffuse mesenteric infiltration. Lymph nodes: No gross lymphadenopathy allowing for noncontrast technique. Vasculature: Atherosclerosis of the normal caliber abdominal aorta. Abdominal wall: Normal. Musculoskeletal: Degenerative changes of the spine. IMPRESSION: 1. Findings may represent partial small bowel obstruction in the anterior mid abdomen versus ileus. No abrupt transition point is identifiable. Small bowel measures up to 4 cm in diameter with mild wall thickening. Developing ischemia not excluded. Evaluation is further limited by the lack of intravenous contrast. However, no pneumatosis. 2. The reported site of the rectal tumor is not well identified on this noncontrast examination. 3. Diverticulosis. 4. Small amount of ascites. 5. Moderate emphysema. 6. 7 mm subpleural solid right lower lobe nodule. Attention on follow-up. Electronically signed by: Ajit Palomares M.D. 10/21/2017 1:29 PM Dictated Date/Time: 10/21/2017 1:13 PM
[2017-10-21 19:25] VITALS: BP 99/61; PULSE 71; TEMP 37.2; O2SAT 90
--- NOTE | 2017-10-21 20:40 | Progress Note ---
Internal Med Progress Note Date of Service: Oct 21, 2017. Provider Documentation: SUBJECTIVE: Feels much better today, NG tube clamped, no nausea, no abdominal pain Order to discontinue ordered for CT abdomen pelvis with oral contrast via NG tube NG tube will be discontinued afterwards OBJECTIVE: Vital Signs-as noted below Exam: General-no apparent distress Eyes-sclera nonicteric, pupils reactive light ENT-dry oral mucosa/NG tube clamped with no drainage Neck-no JVD no carotid bruit, no thyromegaly, trachea midline Lungs-clear to auscultate, no wheeze or rales Heart-regular S1-S2, Abdomen-soft, bowel sounds diminished Extremities-no lower extremity edema, no calf tenderness Neuro-alert awake oriented 3 no focal neurological deficits Lab data as noted below. ASSESSMENT & PLAN: ABDOMINAL PAIN/DISTAL SMALL BOWEL OBSTRUCTION Clinically improved, patient able to have able to pass gas, had small bowel movement, no nausea NG tube clamped for minimum drainage discontinued later -Sent from [facility], CT abdomen pelvis without contrast: 10/19/2017, at [facility]: -Diffuse dilatation of the jejunum is seen measuring up to 4.2 cm in transluminal in the diameter with fluid-filled bowel loops. -Differential diagnostic diagnosis considerations include intermittent digit distal small bowel obstruction versus ileus. -No definitive evidence of transition point or evidence of mechanical obstruction on Admission 10/20/17 KUB shows Impression 1. Small bowel obstruction pattern 2. Nasogastric tube within the stomach -Patient was initially started on NG to suction discontinued today Appreciate input from surgery and GI Order for full liquid diet Continue to monitor HISTORY OF RECTAL CANCER ON CHEMO AND RADIATION TREATMENT rectal cancer diagnosed in May 2017, clinical stage T3c N1 M0.Stage IIA -III 06/07/2017: Patient was seen by Beth Swenson physician recovery assistant with complaint of rectal bleed Referral was made for colonoscopy 06/28/2017: Colonoscopy revealed firm nodular - infiltrative polypoid ulcerated rectal mass starting from anal verge and extending up to 5 cm in length Biopsy/pathology shows: Invasive adenocarcinoma, moderately differentiated Patient was seen at [facility] colorectal surgery Dr.Kevin Freeman Tong - will need to complete neoadjuvant chemoradiation therapy -Post chemoradiation patient will need laparoscopic or possible open abdominal perineal resection Hematology oncology consulted, appreciate input Patient been on Xeloda on days of radiation Patient could not complete chemo treatment last week due to side effect Also has developed radiation proctitis with significant perineal skin breakdown In any case if patient fails conservative approach, needs exploratory laparotomy for small bowel obstruction Patient should be transferred to [facility] where she is being followed by colorectal surgery Dr. tong Status: Full code DVT PROPHYLAXIS SCD and teds Pharmacological anticoagulation avoided as patient may need surgical procedure for bowel obstruction DISPOSITION Expected to be discharged home when medically stable Vital Signs: Date Time Temp Pulse Resp B/P (MAP) Pulse Ox O2 Delivery O2 Flow Rate FiO2 10/23/17 11:37 37.0 70 17 90/52 (65) 98 Room Air 10/23/17 08:30 96 Room Air 10/23/17 07:40 36.9 64 16 96/56 (69) 96 Room Air 10/23/17 07:23 36.8 66 16 96/57 (70) 96 Room Air 10/23/17 04:22 36.6 66 18 95/59 (71) 96 Room Air 10/23/17 00:03 37.0 61 18 89/53 (65) 96 Room Air 89/46 (60) 10/23/17 00:00 Room Air 10/22/17 19:56 36.3 86 18 90/60 (70) 93 Room Air 10/22/17 16:00 Room Air Lab Results: Results Past 24 Hours Test 10/23/17 08:39 Range/Units White Blood Count 6.35 4.8-10.8 K/uL Red Blood Count 3.75 4.2-5.4 M/uL Hemoglobin 12.3 12.0-16.0 g/dL Hematocrit 37.7 37-47 % Mean Corpuscular Volume 100.5 80-100 fL Mean Corpuscular Hemoglobin 32.8 25-34 pg Mean Corpuscular Hemoglobin Concent 32.6 32-36 g/dl Platelet Count 214 130-400 K/uL Mean Platelet Volume 9.3 7.4-10.4 fL Neutrophils (%) (Auto) 76.2 % Lymphocytes (%) (Auto) 15.1 % Monocytes (%) (Auto) 4.9 % Eosinophils (%) (Auto) 2.2 % Basophils (%) (Auto) 0.5 % Neutrophils # (Auto) 4.84 1.4-6.5 K/uL Lymphocytes # (Auto) 0.96 1.2-3.4 K/uL Monocytes # (Auto) 0.31 0.11-0.59 K/uL Eosinophils # (Auto) 0.14 0-0.5 K/uL Basophils # (Auto) 0.03 0-0.2 K/uL RDW Standard Deviation 64.6 36.4-46.3 fL RDW Coefficient of Variation 18.2 11.5-14.5 % Immature Granulocyte % (Auto) 1.1 % Immature Granulocyte # (Auto) 0.07 0.00-0.02 K/uL Sodium Level 140 136-145 mmol/L Potassium Level 4.1 3.5-5.1 mmol/L Chloride Level 107 98-107 mmol/L Carbon Dioxide Level 26 21-32 mmol/L Anion Gap 7.0 3-11 mmol/L Blood Urea Nitrogen 3 7-18 mg/dl Creatinine 0.80 0.60-1.20 mg/dl Est Creatinine Clear Calc Drug Dose 61.0 ml/min Estimated GFR () 90.9 Estimated GFR (Non- 78.5 BUN/Creatinine Ratio 4.3 10-20 Random Glucose 107 70-99 mg/dl Calcium Level 8.5 8.5-10.1 mg/dl Magnesium Level 1.9 1.8-2.4 mg/dl
[2017-10-21 23:32] VITALS: BP 100/60; PULSE 70; TEMP 37; O2SAT 93
[2017-10-22] MEDS: D5W AND 1/2NSS + 20MEQ KCL 1,000 ML IV SCH ×3 (01:22→17:05)
[2017-10-22 04:30] VITALS: BP 97/59; PULSE 69; TEMP 36.9; O2SAT 93
[2017-10-22 06:10] LABS: BASO % 0.7 %; BASO ABS # 0.04 K/uL (0-0.2); EOS % 3.4 %; HEMATOCRIT 34.2 % (37-47); HEMOGLOBIN 11.3 g/dL (12.0-16.0); IG# 0.07 K/uL (0.00-0.02); LYMPH % 15.4 %; LYMPH ABS # 0.91 K/uL (1.2-3.4); MEAN CELL VOLUME 99.1 fL (80-100); MEAN CORPUSCULAR HEMOGLOBIN 32.8 pg (25-34); MEAN PLATELET VOLUME 9.4 fL (7.4-10.4); MONO % 11.9 %; NEUT % 67.4 %; NEUT ABS # 3.98 K/uL (1.4-6.5); PLATELET COUNT 196 K/uL (130-400); RED CELL DISTRIBUTION WIDTH CV 17.9 % (11.5-14.5); RED CELL DISTRIBUTION WIDTH SD 63.7 fL (36.4-46.3)
[2017-10-22 06:21] LABS: CALCIUM 8.4 mg/dl (8.5-10.1); CREATININE 0.67 mg/dl (0.60-1.20)
[2017-10-22 06:38] VITALS: Ht 165.1 cm; Wt 53.7 kg
[2017-10-22 07:01] VITALS: BP 90/51; PULSE 73; TEMP 36.7; O2SAT 95
[2017-10-22] MEDS: SILVER SULFADIAZINE 1% CR 50 GM JAR EXT SCH (07:55)
--- NOTE | 2017-10-22 08:27 | DIAGNOSTIC IMAGING REPORT ---
ABDOMEN 2VIEW W/PA CHEST RTN CLINICAL HISTORY: 61 years-old Female presenting with assess transit of contrast. TECHNIQUE: PA view of the chest and supine and upright views of the abdomen were obtained. COMPARISON: 10/21/2017. FINDINGS: Cardiomediastinal silhouette normal. Minimal basilar opacities. No pleural effusion or pneumothorax. Lungs hyperinflated. Contrast is noted in the colon primarily in the right colon. Small bowel is significantly distended with an apparent diameter of nearly 5 cm though this is likely affected by magnification. The nasogastric tube has been removed. No gross pneumoperitoneum allowing for supine technique. Osseous structures normal. IMPRESSION: 1. Findings suggest emphysema. No focal infiltrate to suggest pneumonia. Minimal basilar opacities may represent scarring. 2. Persistent significant small bowel gaseous distention. Progression of oral contrast in the colon consistent with the absence of a complete obstruction. Findings could suggest severe ileus or partial obstruction. 3. Removal of the nasogastric tube. Electronically signed by: Ajit Palomares M.D. 10/22/2017 8:26 AM Dictated Date/Time: 10/22/2017 8:19 AM
[2017-10-22] MEDS: METHYLNALTREXONE BROMIDE INJ 12 MG/0.6 ML SYR SQ SCH (09:00)
[2017-10-22 11:18] VITALS: BP 100/63; PULSE 67; TEMP 36.9; O2SAT 96
--- NOTE | 2017-10-22 11:44 | Surgery Progress Note ---
Surgery Progress Note Date of Service Oct 22, 2017. Subjective no signif pain- pt smiling- good spirits hungry contrast in colon Objective Vital Signs: Date Time Temp Pulse Resp B/P (MAP) Pulse Ox O2 Delivery O2 Flow Rate FiO2 10/22/17 11:18 36.9 67 16 100/63 (75) 96 Room Air 10/22/17 09:03 Room Air 10/22/17 07:01 36.7 73 16 90/51 (64) 95 Room Air 10/22/17 04:30 36.9 69 17 97/59 (72) 93 Room Air 10/22/17 00:59 Room Air 10/21/17 23:32 37.0 70 18 100/60 (73) 93 Room Air 10/21/17 19:25 37.2 71 18 99/61 (74) 90 Room Air 10/21/17 19:00 Room Air 10/21/17 15:02 36.7 67 16 90/55 (67) 92 10/21/17 11:55 36.7 69 20 94/56 (69) 85 Room Air General Appearance: no apparent distress Respiratory/Chest: no respiratory distress Abdomen: + distended (mild) Laboratory Results: Results Past 24 Hours Test 10/22/17 05:35 Range/Units White Blood Count 5.90 4.8-10.8 K/uL Red Blood Count 3.45 4.2-5.4 M/uL Hemoglobin 11.3 12.0-16.0 g/dL Hematocrit 34.2 37-47 % Mean Corpuscular Volume 99.1 80-100 fL Mean Corpuscular Hemoglobin 32.8 25-34 pg Mean Corpuscular Hemoglobin Concent 33.0 32-36 g/dl Platelet Count 196 130-400 K/uL Mean Platelet Volume 9.4 7.4-10.4 fL Neutrophils (%) (Auto) 67.4 % Lymphocytes (%) (Auto) 15.4 % Monocytes (%) (Auto) 11.9 % Eosinophils (%) (Auto) 3.4 % Basophils (%) (Auto) 0.7 % Neutrophils # (Auto) 3.98 1.4-6.5 K/uL Lymphocytes # (Auto) 0.91 1.2-3.4 K/uL Monocytes # (Auto) 0.70 0.11-0.59 K/uL Eosinophils # (Auto) 0.20 0-0.5 K/uL Basophils # (Auto) 0.04 0-0.2 K/uL RDW Standard Deviation 63.7 36.4-46.3 fL RDW Coefficient of Variation 17.9 11.5-14.5 % Immature Granulocyte % (Auto) 1.2 % Immature Granulocyte # (Auto) 0.07 0.00-0.02 K/uL Sodium Level 143 136-145 mmol/L Potassium Level 4.0 3.5-5.1 mmol/L Chloride Level 107 98-107 mmol/L Carbon Dioxide Level 28 21-32 mmol/L Anion Gap 7.0 3-11 mmol/L Blood Urea Nitrogen 4 7-18 mg/dl Creatinine 0.67 0.60-1.20 mg/dl Est Creatinine Clear Calc Drug Dose 74.6 ml/min Estimated GFR () 108.4 Estimated GFR (Non- 93.5 BUN/Creatinine Ratio 5.7 10-20 Random Glucose 120 70-99 mg/dl Calcium Level 8.4 8.5-10.1 mg/dl Magnesium Level 2.1 1.8-2.4 mg/dl Chemistry Specimen Hemolysis Assessment & Plan 10/22/17- will try full liquids- discussed with Dr Gallardo- if pt fails, will likely transfer to [place]- or home if able to progress 10/21/17- abd distention and CT findings - sbo- ileus vs mechanical recent chemo/ radiation- doubt findings related to tumor- colon decompressed. May consider Re CT w/ contrast via NG- GI team seeing pt. Overall she is stable addendum- CT w/ contrast- report pending- all contrast into small bowel none in stomach- no N/V- NG clamped since this am. contrast is progressing through dilated sb. will d/c NG, check xray in am to assess transit of contrast. possibly try diet tomorrow. 10/21/17- abd distention and CT findings - sbo- ileus vs mechanical recent chemo/ radiation- doubt findings related to tumor- colon decompressed. May consider Re CT w/ contrast via NG- GI team seeing pt. Overall she is stable addendum- CT w/ contrast- report pending- all contrast into small bowel none in stomach- no N/V- NG clamped since this am. contrast is progressing through dilated sb. will d/c NG, check xray in am to assess transit of contrast. possibly try diet tomorrow.
[2017-10-22 19:56] VITALS: BP 90/60; PULSE 86; TEMP 36.3; O2SAT 93
--- NOTE | 2017-10-22 20:45 | Progress Note ---
Internal Med Progress Note Date of Service: Oct 22, 2017. Provider Documentation: SUBJECTIVE: Feels much better today: X-ray of KUB shows contrast passage all the way to colon Diet advanced to full liquid, tolerating well Plan to discharge home tomorrow if no further episode of nausea vomiting or abdominal discomfort OBJECTIVE: Vital Signs-as noted below Exam: General-no apparent distress Eyes-sclera nonicteric, pupils reactive light ENT-dry oral mucosa Neck-no JVD no carotid bruit, no thyromegaly, trachea midline Lungs-clear to auscultate, no wheeze or rales Heart-regular S1-S2, Abdomen-soft, bowel sounds diminished Extremities-no lower extremity edema, no calf tenderness Neuro-alert awake oriented 3 no focal neurological deficits Lab data as noted below. ASSESSMENT & PLAN: ABDOMINAL PAIN/DISTAL SMALL BOWEL OBSTRUCTION Clinically resolved with bowel rest, NG suction only CT abdomen pelvis with contrast shows: Possible partial small bowel obstruction versus ileus No abrupt transition point is identified Small bowel measures to 4 cm in diameter with mild wall thickening X-ray of KUB: Shows progression of oral contrast in the colon consistent with the absence of a complete obstruction Findings could suggest severe ileus or partial obstruction Patient has been tolerating diet well GI evaluated the patient, recommend bowel regimen Per surgery patient will be observed overnight, advance to solid food Can be discharged home tomorrow 10/23/2017 if no further GI symptoms -Sent from [facility], CT abdomen pelvis without contrast: 10/19/2017, at [facility]: -Diffuse dilatation of the jejunum is seen measuring up to 4.2 cm in transluminal in the diameter with fluid-filled bowel loops. -Differential diagnostic diagnosis considerations include intermittent digit distal small bowel obstruction versus ileus. -No definitive evidence of transition point or evidence of mechanical obstruction on Admission 10/20/17 KUB shows Impression 1. Small bowel obstruction pattern 2. Nasogastric tube within the stomach HISTORY OF RECTAL CANCER ON CHEMO AND RADIATION TREATMENT rectal cancer diagnosed in May 2017, clinical stage T3c N1 M0.Stage IIA -III 06/07/2017: Patient was seen by Beth Swenson physician patient observation assistant with complaint of rectal bleed Referral was made for colonoscopy 06/28/2017: Colonoscopy revealed firm nodular - infiltrative polypoid ulcerated rectal mass starting from anal verge and extending up to 5 cm in length Biopsy/pathology shows: Invasive adenocarcinoma, moderately differentiated Patient was seen at [facility] colorectal surgery Dr.Kevin Freeman Tong - will need to complete neoadjuvant chemoradiation therapy -Post chemoradiation patient will need laparoscopic or possible open abdominal perineal resection Hematology oncology consulted, appreciate input Patient been on Xeloda on days of radiation Patient could not complete chemo treatment last week due to side effect Also has developed radiation proctitis with significant perineal skin breakdown On conservative management with bowel rest, IV fluids only Plan to discharge home tomorrow if tolerating solid diet Status: Full code DVT PROPHYLAXIS SCD and teds Pharmacological anticoagulation avoided as patient may need surgical procedure for bowel obstruction DISPOSITION Plan for discharge home tomorrow Vital Signs: Date Time Temp Pulse Resp B/P (MAP) Pulse Ox O2 Delivery O2 Flow Rate FiO2 10/23/17 11:37 37.0 70 17 90/52 (65) 98 Room Air 10/23/17 08:30 96 Room Air 10/23/17 07:40 36.9 64 16 96/56 (69) 96 Room Air 10/23/17 07:23 36.8 66 16 96/57 (70) 96 Room Air 10/23/17 04:22 36.6 66 18 95/59 (71) 96 Room Air 10/23/17 00:03 37.0 61 18 89/53 (65) 96 Room Air 89/46 (60) 10/23/17 00:00 Room Air 10/22/17 19:56 36.3 86 18 90/60 (70) 93 Room Air 10/22/17 16:00 Room Air Lab Results: Results Past 24 Hours Test 10/23/17 08:39 Range/Units White Blood Count 6.35 4.8-10.8 K/uL Red Blood Count 3.75 4.2-5.4 M/uL Hemoglobin 12.3 12.0-16.0 g/dL Hematocrit 37.7 37-47 % Mean Corpuscular Volume 100.5 80-100 fL Mean Corpuscular Hemoglobin 32.8 25-34 pg Mean Corpuscular Hemoglobin Concent 32.6 32-36 g/dl Platelet Count 214 130-400 K/uL Mean Platelet Volume 9.3 7.4-10.4 fL Neutrophils (%) (Auto) 76.2 % Lymphocytes (%) (Auto) 15.1 % Monocytes (%) (Auto) 4.9 % Eosinophils (%) (Auto) 2.2 % Basophils (%) (Auto) 0.5 % Neutrophils # (Auto) 4.84 1.4-6.5 K/uL Lymphocytes # (Auto) 0.96 1.2-3.4 K/uL Monocytes # (Auto) 0.31 0.11-0.59 K/uL Eosinophils # (Auto) 0.14 0-0.5 K/uL Basophils # (Auto) 0.03 0-0.2 K/uL RDW Standard Deviation 64.6 36.4-46.3 fL RDW Coefficient of Variation 18.2 11.5-14.5 % Immature Granulocyte % (Auto) 1.1 % Immature Granulocyte # (Auto) 0.07 0.00-0.02 K/uL Sodium Level 140 136-145 mmol/L Potassium Level 4.1 3.5-5.1 mmol/L Chloride Level 107 98-107 mmol/L Carbon Dioxide Level 26 21-32 mmol/L Anion Gap 7.0 3-11 mmol/L Blood Urea Nitrogen 3 7-18 mg/dl Creatinine 0.80 0.60-1.20 mg/dl Est Creatinine Clear Calc Drug Dose 61.0 ml/min Estimated GFR () 90.9 Estimated GFR (Non- 78.5 BUN/Creatinine Ratio 4.3 10-20 Random Glucose 107 70-99 mg/dl Calcium Level 8.5 8.5-10.1 mg/dl Magnesium Level 1.9 1.8-2.4 mg/dl
[2017-10-23] VITALS (8 sets, daily range): BP systolic 89–96; BP diastolic 46–59; PULSE 61–70; TEMP 36.6–37; O2SAT 90–98
[2017-10-23] MEDS: D5W AND 1/2NSS + 20MEQ KCL 1,000 ML IV SCH ×2 (01:04→08:32)
[2017-10-23] MEDS: SILVER SULFADIAZINE 1% CR 50 GM JAR EXT SCH (08:32)
[2017-10-23 08:56] LABS: BASO % 0.5 %; BASO ABS # 0.03 K/uL (0-0.2); EOS % 2.2 %; EOS ABS # 0.14 K/uL (0-0.5); HEMATOCRIT 37.7 % (37-47); HEMOGLOBIN 12.3 g/dL (12.0-16.0); IG# 0.07 K/uL (0.00-0.02); LYMPH % 15.1 %; LYMPH ABS # 0.96 K/uL (1.2-3.4); MEAN CELL VOLUME 100.5 fL (80-100); MEAN CORPUSCULAR HEMOGLOBIN 32.8 pg (25-34); MEAN CORPUSCULAR HGB CONC 32.6 g/dl (32-36); MEAN PLATELET VOLUME 9.3 fL (7.4-10.4); MONO % 4.9 %; MONO ABS # 0.31 K/uL (0.11-0.59); NEUT % 76.2 %; NEUT ABS # 4.84 K/uL (1.4-6.5); PLATELET COUNT 214 K/uL (130-400); RED CELL DISTRIBUTION WIDTH CV 18.2 % (11.5-14.5); RED CELL DISTRIBUTION WIDTH SD 64.6 fL (36.4-46.3); WHITE BLOOD COUNT 6.35 K/uL (4.8-10.8)
[2017-10-23 09:31] LABS: CALCIUM 8.5 mg/dl (8.5-10.1); CREATININE 0.8 mg/dl (0.60-1.20); POTASSIUM 4.1 mmol/L (3.5-5.1)
--- NOTE | 2017-10-23 09:51 | Surgery Progress Note ---
Surgery Progress Note Date of Service Oct 23, 2017. Subjective Feels OK. Pain much improved. Still gets "gas pains" but is passing flatus and having bowel movements. tolerating full liquids and feels hungry for something more solid. Objective Vital Signs: Date Time Temp Pulse Resp B/P (MAP) Pulse Ox O2 Delivery O2 Flow Rate FiO2 10/23/17 07:40 36.9 64 16 96/56 (69) 96 Room Air 10/23/17 07:23 36.8 66 16 96/57 (70) 96 Room Air 10/23/17 04:22 36.6 66 18 95/59 (71) 96 Room Air 10/23/17 00:03 37.0 61 18 89/53 (65) 96 Room Air 89/46 (60) 10/23/17 00:00 Room Air 10/22/17 19:56 36.3 86 18 90/60 (70) 93 Room Air 10/22/17 16:00 Room Air 10/22/17 11:18 36.9 67 16 100/63 (75) 96 Room Air General Appearance: WD/WN, no apparent distress Head: normocephalic, atraumatic Respiratory/Chest: no respiratory distress, no accessory muscle use Cardiovascular: regular rate, rhythm Abdomen: normal bowel sounds, non tender, soft, + distended (mild) Extremities: no pedal edema Laboratory Results: Results Past 24 Hours Test 10/23/17 08:39 Range/Units White Blood Count 6.35 4.8-10.8 K/uL Red Blood Count 3.75 4.2-5.4 M/uL Hemoglobin 12.3 12.0-16.0 g/dL Hematocrit 37.7 37-47 % Mean Corpuscular Volume 100.5 80-100 fL Mean Corpuscular Hemoglobin 32.8 25-34 pg Mean Corpuscular Hemoglobin Concent 32.6 32-36 g/dl Platelet Count 214 130-400 K/uL Mean Platelet Volume 9.3 7.4-10.4 fL Neutrophils (%) (Auto) 76.2 % Lymphocytes (%) (Auto) 15.1 % Monocytes (%) (Auto) 4.9 % Eosinophils (%) (Auto) 2.2 % Basophils (%) (Auto) 0.5 % Neutrophils # (Auto) 4.84 1.4-6.5 K/uL Lymphocytes # (Auto) 0.96 1.2-3.4 K/uL Monocytes # (Auto) 0.31 0.11-0.59 K/uL Eosinophils # (Auto) 0.14 0-0.5 K/uL Basophils # (Auto) 0.03 0-0.2 K/uL RDW Standard Deviation 64.6 36.4-46.3 fL RDW Coefficient of Variation 18.2 11.5-14.5 % Immature Granulocyte % (Auto) 1.1 % Immature Granulocyte # (Auto) 0.07 0.00-0.02 K/uL Sodium Level 140 136-145 mmol/L Potassium Level 4.1 3.5-5.1 mmol/L Chloride Level 107 98-107 mmol/L Carbon Dioxide Level 26 21-32 mmol/L Anion Gap 7.0 3-11 mmol/L Blood Urea Nitrogen 3 7-18 mg/dl Creatinine 0.80 0.60-1.20 mg/dl Est Creatinine Clear Calc Drug Dose 61.0 ml/min Estimated GFR () 90.9 Estimated GFR (Non- 78.5 BUN/Creatinine Ratio 4.3 10-20 Random Glucose 107 70-99 mg/dl Calcium Level 8.5 8.5-10.1 mg/dl Magnesium Level 1.9 1.8-2.4 mg/dl Assessment & Plan 61 yr old woman undergoing chemoradiation for rectal cancer and admitted with narcotic ileus vs bowel obstruction. Appears to be resolving. OK to advance to soft diet.
--- NOTE | 2017-10-23 10:22 | DIAGNOSTIC IMAGING REPORT ---
KUB CLINICAL HISTORY: Rectal carcinoma. Bowel obstruction COMPARISON STUDY: October 22, 2017 FINDINGS: There are multiple dilated small bowel loops measuring up to 4.7 cm in diameter. There is gas present within nondilated colon. IMPRESSION: Persistent dilated small bowel loops, consistent with a focal small bowel ileus or partial small bowel obstruction Electronically signed by: Ihsan Bustamante M.D. 10/23/2017 10:20 AM Dictated Date/Time: 10/23/2017 10:19 AM
--- NOTE | 2017-10-23 14:02 | Discharge Instructions ---
Discharge Instructions Date of Service Oct 23, 2017. Admission Reason for Admission: Small Bowel Obstruction, Rectal Cancer Discharge Discharge Diagnosis / Problem: PARTIAL SMALL BOWEL OBSTRUCITON -RESOLVED Discharge Goals Goal(s): Decrease discomfort, Improve function, Increase independence, Improve disease control, Therapeutic intervention Activity Recommendations Activity Limitations: resume your previous activity . Instructions / Follow-Up Instructions / Follow-Up HOSPITAL FOLLOW UP : 10/28/2017 @ 11:05 AM José Miguel Velarde MD Internal Medicine [facility] HEMATOLOGY /ONCOLOGY FOLLOW UP : 10/27/2017 9:45 AM Jan Ely MD Hematology/ Oncology [facility] CONTINUE TO TAKE STOOL SOFTENER : COLACE 1 TAB TWICE DAILY ( OVER THE COUNTER ) /MIRALAX HOLD FOR LOOSE STOOL Current Hospital Diet Patient's current hospital diet: Low Fiber Diet Discharge Diet Recommended Diet: Full Liquid Diet Pending Studies Studies pending at discharge: no Medical Emergencies . Who to Call and When: Medical Emergencies: If at any time you feel your situation is an emergency, please call 911 immediately. . Non-Emergent Contact Non-Emergency issues call your: Primary Care Provider . . "Provider Documentation" section prepared by Asha Hui. .
--- NOTE | 2017-10-23 15:08 | Discharge Summary ---
Discharge Summary Date of Service Oct 23, 2017. Discharge Summary Admission Date: Oct 20, 2017 at 00:17 Discharge Date: Oct 23, 2017 Hospital Course ABDOMINAL PAIN/DISTAL SMALL BOWEL OBSTRUCTION Clinically resolved with bowel rest, NG suction only CT abdomen pelvis with contrast shows: Possible partial small bowel obstruction versus ileus No abrupt transition point is identified Small bowel measures to 4 cm in diameter with mild wall thickening X-ray of KUB: Shows progression of oral contrast in the colon consistent with the absence of a complete obstruction Findings could suggest severe ileus or partial obstruction Patient has been tolerating diet well GI evaluated the patient, recommend bowel regimen Per surgery patient will be observed overnight, advance to solid food Can be discharged home tomorrow 10/23/2017 if no further GI symptoms -Sent from [facility], CT abdomen pelvis without contrast: 10/19/2017, at [facility]: -Diffuse dilatation of the jejunum is seen measuring up to 4.2 cm in transluminal in the diameter with fluid-filled bowel loops. -Differential diagnostic diagnosis considerations include intermittent digit distal small bowel obstruction versus ileus. -No definitive evidence of transition point or evidence of mechanical obstruction on Admission 10/20/17 KUB shows Impression 1. Small bowel obstruction pattern 2. Nasogastric tube within the stomach HISTORY OF RECTAL CANCER ON CHEMO AND RADIATION TREATMENT rectal cancer diagnosed in May 2017, clinical stage T3c N1 M0.Stage IIA -III 06/07/2017: Patient was seen by Beth Swenson physician assistant statistician with complaint of rectal bleed Referral was made for colonoscopy 06/28/2017: Colonoscopy revealed firm nodular - infiltrative polypoid ulcerated rectal mass starting from anal verge and extending up to 5 cm in length Biopsy/pathology shows: Invasive adenocarcinoma, moderately differentiated Patient was seen at [facility] colorectal surgery Dr.Kevin Freeman Togn - will need to complete neoadjuvant chemoradiation therapy -Post chemoradiation patient will need laparoscopic or possible open abdominal perineal resection Hematology oncology consulted, appreciate input Patient been on Xeloda on days of radiation Patient could not complete chemo treatment last week due to side effect Also has developed radiation proctitis with significant perineal skin breakdown On conservative management with bowel rest, IV fluids only Plan to discharge home tomorrow if tolerating solid diet Status: Full code DVT PROPHYLAXIS SCD and teds Pharmacological anticoagulation avoided as patient may need surgical procedure for bowel obstruction DISPOSITION Plan for discharge home tomorrow Total time spent on discharge = This includes examination of the patient, discharge planning, medication reconciliation, and communication with other providers.
--- NOTE | 2017-10-23 15:10 | Discharge Summary ---
Discharge Summary Date of Service Oct 23, 2017. Discharge Summary Admission Date: Oct 20, 2017 at 00:17 Discharge Date: Oct 23, 2017 Discharge Disposition: Home Principal Diagnosis: PARTIAL SMALL BOWEL OBSTRUCTION -RESOLVED Procedures: X-ray of KUB: 10/20/2017 Impression: 1. Small bowel obstruction pattern 2. Nasogastric tube within the stomach. CT ABDOMEN PELVIS WITH ORAL CONTRAST ONLY 1. Findings may represent partial small bowel obstruction in the anterior mid abdomen versus ileus. No abrupt transition point is identified. Small bowel measures up to 4 cm in diameter with mild wall thickening. Developing ischemia not excluded. Motion is further limited by lack of intravenous contrast, 2. The reported site of rectal tumor is not identified on this noncontrast examination 3. 7 mm subpleural solid right lower lobe nodule, follow-up CT chest recommended Consultations: SURGERY DR SHIRLEY ONEAL GI Medication Reconciliation Continued Medications: Capecitabine (Xeloda) 500 Mg Tab 1300 MG PO Q12H, TAB Ondansetron Hcl (Zofran) 4 Mg Tab 4 MG PO Q4 PRN for Nausea, TAB Oxycodone/Acetaminophen 5MG/325MG (Percocet 5MG/325MG) Tab 1 TABLET PO Q4H PRN for Pain, #14 TAB Prochlorperazine Maleate (Compazine) 10 Mg Tab 10 MG PO Q6H PRN for Nausea or Vomiting, #10 TAB Ranitidine (Zantac) 150 Mg Tab 1 TAB PO BID PRN for Heartburn for 30 Days, #60 TAB 3 Refills Silver Sulfadiazine (Silvadene) 1 % Cre 1 APPLN TOP DAILY for 7 Days, #50 GM Admission Information HPI (per Admitting provider): DATE OF ADMISSION: 10/19/2017 CHIEF COMPLAINT: abdominal pain. HISTORY OF PRESENT ILLNESS: 61F with recent diagnosis of rectal cancer on chemoradiation,hx of GERD, tobacco use presents with severe abdominal pain ongoing for last couple of weeks. Thought it was UTI and was getting antibiotics but her symptoms are not improving. No nausea or vomiting. But last couple of days not eating. Took laxatives and had a normal bowel movement today.Because of ongoing abdominal pain went to [facility] today. Ct sacn was done which swoed dilated jejunum and possible Distal SBO or ileus and was transferred ere for further care. Denies any headaches or dizziness, No blurred vsion, no earaches, No runny nose, no sore throat, no difficulty swallowing. having low grade fevers on and off, No chest pain or sob.No cough. No blood in stools. Normal bladder movements. PMH as above Past surgical history: Colonoscopy with biopsy, ligation of oviducts, tonsillectomy. MEDICATIONS: The patient is on Cipro 500 mg p.o. b.i.d. for 10 days, Percocet 5/325 mg 1 tablet every 4-6 hours p.r.n., silver sulfadiazine apply to affected area as needed, Zofran 8 mg p.o. b.i.d. p.r.n., Xeloda 1300mg mg p.o. b.i.d.with radiation, compazine 10mg p.r.n., Pepcid 20 mg p.o. bid. FAMILY HISTORY: Significant for father . SOCIAL HISTORY: and lives with her . Smokes 1 pack a day for 49 years. No alcohol. No drugs REVIEW OF SYMPTOMS: As per HPI. Rest of the review of symptoms negative. Physical Exam (per Admitting): PHYSICAL EXAMINATION: GENERAL: The patient is of moderate build, not in distress. VITAL SIGNS: Temperature 37.2, pulse 90, respiratory rate 18, blood pressure 105/63 oxygen 90% on room air. HEENT: No pallor, no icterus. NECK: No JVD. No neck masses. No carotid bruits. CARDIOVASCULAR: S1, S2 heard. Regular rate and rhythm. No murmur. No gallop. RESPIRATORY SYSTEM: Normal AP diameter. No accessory muscle use. No wheezing. No crackles. ABDOMEN: Soft. Bowel sounds sluggish, slightly distended. Diffuse tenderness. No guarding or rigidity. CENTRAL NERVOUS SYSTEM: Cranial nerves II through XII grossly intact. Nonfocal. EXTREMITIES: No edema, no erythema. Hospital Course ABDOMINAL PAIN/DISTAL SMALL BOWEL OBSTRUCTION Clinically resolved with bowel rest, NG suction only CT abdomen pelvis with contrast shows: Possible partial small bowel obstruction versus ileus No abrupt transition point is identified Small bowel measures to 4 cm in diameter with mild wall thickening X-ray of KUB: Shows progression of oral contrast in the colon consistent with the absence of a complete obstruction Findings could suggest severe ileus or partial obstruction Patient has been tolerating diet well GI evaluated the patient, recommend bowel regimen Per surgery patient will be observed overnight, advance to solid food Can be discharged home tomorrow 10/23/2017 if no further GI symptoms -Sent from [facility], CT abdomen pelvis without contrast: 10/19/2017, at [facility]: -Diffuse dilatation of the jejunum is seen measuring up to 4.2 cm in transluminal in the diameter with fluid-filled bowel loops. -Differential diagnostic diagnosis considerations include intermittent digit distal small bowel obstruction versus ileus. -No definitive evidence of transition point or evidence of mechanical obstruction on Admission 10/20/17 KUB shows Impression 1. Small bowel obstruction pattern 2. Nasogastric tube within the stomach HISTORY OF RECTAL CANCER ON CHEMO AND RADIATION TREATMENT rectal cancer diagnosed in May 2017, clinical stage T3c N1 M0.Stage IIA -III 06/07/2017: Patient was seen by Beth wSenson physician patient observation assistant with complaint of rectal bleed Referral was made for colonoscopy 06/28/2017: Colonoscopy revealed firm nodular - infiltrative polypoid ulcerated rectal mass starting from anal verge and extending up to 5 cm in length Biopsy/pathology shows: Invasive adenocarcinoma, moderately differentiated Patient was seen at [facility] colorectal surgery Dr.Kevin Freeman Tong - will need to complete neoadjuvant chemoradiation therapy -Post chemoradiation patient will need laparoscopic or possible open abdominal perineal resection Hematology oncology consulted, appreciate input Patient been on Xeloda on days of radiation Patient could not complete chemo treatment last week due to side effect Also has developed radiation proctitis with significant perineal skin breakdown On conservative management with bowel rest, IV fluids only Plan to discharge home tomorrow if tolerating solid diet Status: Full code DVT PROPHYLAXIS SCD and teds Pharmacological anticoagulation avoided as patient may need surgical procedure for bowel obstruction DISPOSITION Plan for discharge home tomorrow Total time spent on discharge = 35 MIN This includes examination of the patient, discharge planning, medication reconciliation, and communication with other providers. Discharge Instructions Discharge Instructions Date of Service Oct 23, 2017. Admission Reason for Admission: Small Bowel Obstruction, Rectal Cancer Discharge Discharge Diagnosis / Problem: PARTIAL SMALL BOWEL OBSTRUCTION -RESOLVED Discharge Goals Goal(s): Decrease discomfort, Improve function, Increase independence, Improve disease control, Therapeutic intervention Activity Recommendations Activity Limitations: resume your previous activity . Instructions / Follow-Up Instructions / Follow-Up HOSPITAL FOLLOW UP : 10/28/2017 @ 11:05 AM José Miguel Velarde MD Internal Medicine [facility] HEMATOLOGY /ONCOLOGY FOLLOW UP : 10/27/2017 9:45 AM Jan Ely MD Hematology/ Oncology [facility] CONTINUE TO TAKE STOOL SOFTENER : COLACE 1 TAB TWICE DAILY ( OVER THE COUNTER ) /MIRALAX HOLD FOR LOOSE STOOL Current Hospital Diet Patient's current hospital diet: Low Fiber Diet Discharge Diet Recommended Diet: Full Liquid Diet Pending Studies Studies pending at discharge: no Medical Emergencies . Who to Call and When: Medical Emergencies: If at any time you feel your situation is an emergency, please call 911 immediately. . Non-Emergent Contact Non-Emergency issues call your: Primary Care Provider . . "Provider Documentation" section prepared by Asha Hui. . Additional Copies To José Miguel Velarde M.D. Patel, Nilesh A., M.D.
[2017-10-28] MEDS ORDERED: POLY335019 PO (13:21)
[2017-10-28] MEDS ORDERED: LIDO5CRE13 TOP (13:21)
[2017-10-28] MEDS ORDERED: DOCU-94 PO (13:21)
== END 2017-10-23 16:45 | disposition home or self-care (01) | DRG 389 ==
LOC: C.4E 23:20 → UNDOADMIN 23:20 → C.4E 10-20 00:17
PROVIDERS: ADMIT Internal Medicine; ATTEND Hospitalist
DX: K56.600 Partial intestinal obstruction, unspecified as to cause (principal); C20 Malignant neoplasm of rectum; K56.7 Ileus, unspecified; T40.605A Adverse effect of unspecified narcotics, initial encounter; K21.9 Gastro-esophageal reflux disease without esophagitis; F17.200 Nicotine dependence, unspecified, uncomplicated; Z79.899 Other long term (current) drug therapy; Z91.041 Radiographic dye allergy status